=== PATIENT | male | born 1970 | race Caucasian/White ===

== ENCOUNTER 2017-08-23 08:18 | Emergency (ER) | payer OTHER ==
[~2017-08-23] VITALS: Ht 175.3 cm; Wt 100.0 kg
[~2017-08-23 08:18] MED LIST: CIAL20TA PO; GABA600T PO; LORA-650 PO; TAMS0.4C4 PO
[2017-08-23 08:21] VITALS: BP 159/84; PULSE 97; RESP 16; TEMP 97.8; O2SAT 97
--- NOTE | 2017-08-23 08:31 | PD ---
HPI Chief Complaint: Back/ Neck Pain or Injury Time Seen by Provider: 08:31 Travel History International Travel<30 days: No Contact w/Intl Traveler<30days: No Traveled to known affect area: No History of Present Illness HPI 47-year-old male with long history of lower back pain, scoliosis, and history of cyst removal from the thoracic spine several years ago, presents emergency department with 3 day history of worsening lower back pain with right sided radicular symptoms. Patient denies weakness, numbness, or changes in bowels or bladder. Patient has gabapentin 300 mg as well as Flexeril 10 mg at home, which he took to gabapentin, and one Flexeril earlier this morning with some relief. Patient states he is unable to take ibuprofen as he developed bleeding ulcers requiring hospitalization in the last several months. Patient also states reaction to prednisone in the past causing him to feel "dizzy". Pain is currently 8 out of 10, and the lower lumbar spine with radicular symptoms into the right hip. PFSH Past Medical History Cardiovascular Problems: No (01/15/12 ekg shows right bundle branch block) Endocrine: No Genitourinary: No Neurologic: No Psychiatric: No Reproductive: No Respiratory: No Ulcer: Yes Past Surgical History Abdominal Surgery: Yes (BLEEDING ULCER ) Social History Alcohol Use: Yes (2 TIMES PER WEEK) Tobacco Use: No Substance Use: No Allergies-Medications (Allergen,Severity, Reaction): Coded Allergies: ibuprofen (Unverified Allergy, Severe, Bleeding, 10/19/16) Reported Meds & Prescriptions Reported Meds & Active Scripts Active Cialis (Tadalafil) 20 Mg Tab 20 Mg PO DAILY PRN Do not exceed 1 dose/day. Tamsulosin (Tamsulosin HCl) 0.4 Mg Cap 0.4 Mg PO BID Reported Allergy Relief (Loratadine) 10 Mg Tab 10 Mg PO DAILY Gabapentin 600 Mg Tab 600 Mg PO HS Review of Systems Except as stated in HPI: all other systems reviewed are Neg General / Constitutional: No: Fever Eyes: No: Visual changes HENT: No: Headaches Cardiovascular: No: Chest Pain or Discomfort Respiratory: No: Shortness of Breath Gastrointestinal: No: Abdominal Pain Genitourinary: No: Dysuria Musculoskeletal: Positive: Arthralgias, Limited ROM, Pain Skin: No Rash Neurologic: No: Weakness Psychiatric: No: Depression Endocrine: No: Polydipsia Hematologic/Lymphatic: No: Easy Bruising Physical Exam Narrative GENERAL: Patient appears in mild to moderate distress. SKIN: Warm and dry. Normal color. Normal turgor. Well-healed scars to the back consistent with patient's history. HEAD: Atraumatic. Normocephalic. EYES: Pupils equal and round. No scleral icterus. No injection or drainage. ENT: No nasal bleeding or discharge. Mucous membranes pink and moist. Pharynx is clear. Airways patent. NECK: Trachea midline. Neck is supple and nontender. CARDIOVASCULAR: Regular rate and rhythm. RESPIRATORY: No accessory muscle use. Clear to auscultation. Breath sounds equal bilaterally. GASTROINTESTINAL: Abdomen soft, non-tender, nondistended. Hepatic and splenic margins not palpable. MUSCULOSKELETAL: Extremities without clubbing, cyanosis, or edema. Patient is fairly significant scoliosis with curvature to the left. He is tender in the right lower lumbar region with sciatic notch tenderness. Question of straight leg raise pain noted on the right at 45. Patient has no obvious weakness of the lower extremities. Deep tendon reflexes are 2+ and equal bilaterally. NEUROLOGICAL: Awake and alert. No obvious cranial nerve deficits. Motor grossly within normal limits. Five out of 5 muscle strength in the arms and legs. Normal speech. PSYCHIATRIC: Appropriate mood and affect; insight and judgment normal. Data Data Last Documented VS Vital Signs Date Time Temp Pulse Resp B/P (MAP) Pulse Ox O2 Delivery O2 Flow Rate FiO2 08/23/17 08:21 97.8 97 16 159/84 (109) 97 MDM Medical Decision Making Medical Screen Exam Complete: Yes Emergency Medical Condition: Yes Medical Record Reviewed: Yes Differential Diagnosis Acute on chronic low back pain. Sciatica. Lumbago. Scoliosis. Narrative Course Radiographic imaging is not felt warranted based on my history and physical. Patient is given Toradol 60 mg IM Patient continued on meloxicam 7.5 mg twice daily for 10 days. Patient given refill of gabapentin 300 mg 3 times daily #30. Patient given refill of Flexeril 10 mg 3 times daily as needed #30. Patient is use heat followed by ice, and follow-up with primary care or pain management as needed. Diagnosis Primary Impression: Lumbago with sciatica, right side Qualified Codes: M54.41 - Lumbago with sciatica, right side Patient Instructions: General Instructions, Lower Back Exercises (ED), Lumbar Radiculopathy (ED) Additional Instructions: Radiographic imaging is not felt warranted based on my history and physical. Patient is given Toradol 60 mg IM Patient continued on meloxicam 7.5 mg twice daily for 10 days. Patient given refill of gabapentin 300 mg 3 times daily #30. Patient given refill of Flexeril 10 mg 3 times daily as needed #30. Patient is use heat followed by ice, and follow-up with primary care or pain management as needed. Med/Other Pt SpecificInfo: Prescription(s) given Disposition: 01 DISCHARGE HOME Condition: Stable Ace Burks Aug 23, 2017 08:31
[2017-08-23] MEDS ORDERED: CYCL10TA PO (08:47)
[2017-08-23] MEDS ORDERED: GABA300C5 PO (08:47)
[2017-08-23] MEDS ORDERED: MELO7.5T27 PO (08:47)
[2017-08-23] MEDS ORDERED: KETOROLAC TROMETHAMINE 60 MG/2 ML (IM) VIAL IM ONE (09:00)
== END 2017-08-23 09:18 | disposition home or self-care (01) ==
LOC: NEPD 08:18
DX: M54.41 Lumbago with sciatica, right side (principal); M41.9 Scoliosis, unspecified
CPT/HCPCS: 96372; 99283; J1885